=== PATIENT | male | born 1945 | race Caucasian/White ===

== ENCOUNTER → 2016-07-26 | Outpatient (CLI) | payer OTHER ==
--- NOTE | 2016-07-26 11:12 | DI ---
INDICATION: ITS.REASON: DIAGNOSTIC IMAGING PROCEDURE: CHEST 2-VIEWS UPRIGHT (PA \T\ LAT) Encounter: Initial COMPARISON: None FINDINGS: The lungs are clear without evidence of focal abnormal airspace opacity. There is no pleural effusion or pneumothorax. Poststernotomy changes are present. The heart size, mediastinal contours and pulmonary vascularity are within normal limits. There is no significant skeletal abnormality. IMPRESSION: No acute cardiopulmonary disease. .
--- NOTE | 2016-07-26 18:27 | ECHOF ---
DATE OF PROCEDURE 07/26/2016 PROCEDURE This is a two-dimensional echo with spectral Doppler, color-flow, and M-mode. It was obtained in a patient with coronary artery disease and coronary artery bypass graft. DESCRIPTION OF PROCEDURE Left atrial dimension is normal. Left ventricular end-diastolic dimension is normal. Left ventricular wall thickness is at the upper limits of normal. LV systolic function is normal with ejection fraction of 65%. Right atrium is normal. Right ventricle is normal. Aortic root dimension is normal. Mitral valve annulus is calcified. Mitral valve leaflets are normal with mild mitral regurgitation. Aortic valve shows fibrocalcific changes with no stenosis or insufficiency. Tricuspid valve shows mild tricuspid regurgitation with mild pulmonary hypertension with estimated pulmonary artery systolic pressure of 35. Pulmonary valve shows no pulmonary insufficiency. There is no pericardial effusion. IMPRESSION 1. Normal LV systolic function with ejection fraction of 65%. 2. Mitral annulus calcification with mild mitral regurgitation. 3. Aortic sclerosis. 4. Mild tricuspid regurgitation with mild pulmonary hypertension with estimated pulmonary artery systolic pressure of 35. MTDD
== END ==
LOC: IMA 09:31
DX: Z02.89 Encounter for other administrative examinations (principal)
CPT/HCPCS: 93306